=== PATIENT | male | born 1965 | race American Indian/Alaskan Native ===

== ENCOUNTER 2017-10-10 19:00 | Emergency (ER) | payer MEDICARE, MEDICAID ==
[2017-10-10 19:48] VITALS: BP 140/76
[2017-10-10] MEDS ORDERED: BANOPHEN PO ONE (20:40)
[2017-10-10] MEDS ORDERED: DECADRON IM ONE (20:40)
[2017-10-10] MEDS ORDERED: REGLAN PO ONE (20:40)
[2017-10-10] MEDS ORDERED: TYLENOL PO ONE (20:41)
--- NOTE | 2017-10-10 21:34 | Emergency Department Report ---
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 denies symptoms of withdrawal discussed this sharp chest with movement and noise is no visual changes no nausea vomiting pain is temporarily relieved by rest and NSAIDs pain is exacerbated by stress and movement patient is ambulatory no dizziness no lightheadedness no chest pain no back pain no neck pain this headache is similar to previous headaches the past in location and intensity Timing/Duration: other (5 days ) Quality: moderate Head Injury Location: frontal Recent Head Trauma: no recent headache/trauma, occasional headaches Modifying Factors: improves with: movement, rest Associated Symptoms: denies: confusion, fatigue, facial pain, fever/chills, flushing, loss of consciousness, nausea/vomiting, nasal congestion, nasal drainage, numbness in legs/feet, rash, sinus infection, stiff neck, vision changes, weakness Allergies/Adverse Reactions: Allergies No Known Allergies Allergy (Unverified 10/10/17 19:41) Home Medications: Ambulatory Orders Acetaminophen [Tylenol] 975 mg PO QID PRN #60 capsule 10/10/17 Metoclopramide [Reglan] 10 mg PO ACHS PRN #30 tablet 10/10/17 diphenhydrAMINE [Benadryl CAP] 25 mg PO Q6HR PRN #30 capsule 10/10/17 ED Review of Systems ROS: Stated complaint: SEVERE HEADACHE Other details as noted in HPI Constitutional: denies: chills, fever Eyes: denies: eye pain, eye discharge, vision change ENT: denies: ear pain, throat pain Respiratory: denies: cough, shortness of breath, wheezing Cardiovascular: denies: chest pain, palpitations Endocrine: no symptoms reported Gastrointestinal: denies: abdominal pain, nausea, diarrhea Genitourinary: denies: urgency, dysuria Musculoskeletal: denies: back pain, joint swelling, arthralgia Skin: denies: rash, lesions Neurological: headache. denies: weakness, numbness, paresthesias, confusion, abnormal gait, vertigo Psychiatric: denies: anxiety, depression Hematological/Lymphatic: denies: easy bleeding, easy bruising ED Past Medical Hx - Past Medical History Previous Medical History?: Yes Hx Hypertension: Yes Hx Diabetes: Yes Hx Psychiatric Treatment: Yes (Bipolar) Additional medical history: sleep apnea - Surgical History Past Surgical History?: Yes Additional Surgical History: gastric sleeve - Social History Smoking Status: Never Smoker Substance Use Type: None - Medications Home Medications: Home Medications Medication Instructions Recorded Confirmed Last Taken Type Acetaminophen [Tylenol] 975 mg PO QID PRN #60 capsule 10/10/17 Unknown Rx Metoclopramide [Reglan] 10 mg PO ACHS PRN #30 tablet 10/10/17 Unknown Rx diphenhydrAMINE [Benadryl CAP] 25 mg PO Q6HR PRN #30 capsule 10/10/17 Unknown Rx ED Physical Exam - General Limitations: No Limitations General appearance: alert, in no apparent distress - Head Head exam: Present: atraumatic, normocephalic, normal inspection - Eye Eye exam: Present: normal appearance, PERRL, EOMI Pupils: Present: normal accommodation - ENT ENT exam: Present: normal exam, normal orophraynx, mucous membranes moist, TM's normal bilaterally - Neck Neck exam: Present: normal inspection, full ROM. Absent: tenderness, lymphadenopathy, thyromegaly - Respiratory Respiratory exam: Present: normal lung sounds bilaterally. Absent: respiratory distress, wheezes, stridor, chest wall tenderness - Cardiovascular Cardiovascular Exam: Present: regular rate, normal rhythm. Absent: systolic murmur, diastolic murmur, rubs, gallop - GI/Abdominal GI/Abdominal exam: Present: soft, normal bowel sounds. Absent: distended, tenderness, bruit, hernia - Rectal Rectal exam: Present: deferred - Extremities Exam Extremities exam: Present: normal inspection, full ROM, normal capillary refill. Absent: tenderness - Back Exam Back exam: Present: normal inspection, full ROM. Absent: tenderness - Neurological Exam Neurological exam: Present: alert, oriented X3, CN II-XII intact, normal gait, reflexes normal. Absent: motor sensory deficit - Expanded Neurological Exam Expanded Patient oriented to: Present: person, place, time Speech: Present: fluid speech Cranial nerves: EOM's Intact: Normal, Gag Reflex: Normal, Tongue Deviation: Normal, Nystagmus: Normal, Facial Sensation: Normal Cerebellar function: Finger to Nose: Normal, Heel to Rivas: Normal, Romberg: Normal Upper motor neuron: Chris Neglect: Normal, Pronator Drift: Normal, Babinski Sign : Normal, Sensory Extinction: Normal Sensory exam: Upper Extremity Light Touch: Normal, Upper Extremity Pin Prick: Normal, Upper Extremity Temperature: Normal, UE 2 Point Discrimination: Normal, Lower Extremity Light Touch: Normal, Lower Extremity Pin Prick: Normal, Lower Extremity Temperature: Normal, LE 2 Point Discrimination: Normal Motor strength exam: RUE: 5, LUE: 5, RLE: 5, LLE: 5 DTR: bicep (R): 2+, bicep (L): 2+, tricep (R): 2+, tricep (L): 2+, knee (R): 2+ , knee (L): 2+, ankle (R): 2+, ankle (L): 2+ Best Eye Response (Elizabeth): (4) open spontaneously Best Motor Response ([place]reston): (6) obeys commands Best Verbal Response ([place]): (5) oriented [place] Total: 15 - Psychiatric Psychiatric exam: Present: normal affect, normal mood. Absent: homicidal ideation, suicidal ideation, other (no tremor no memory loss on symptoms of withdrawal ) - Skin Skin exam: Present: warm, dry, intact, normal color. Absent: rash ED Course Vital Signs 10/10/17 19:41 Temperature 99.6 F Pulse Rate 92 H Respiratory 20 Rate Blood Pressure 140/76 O2 Sat by Pulse 98 Oximetry ED Medical Decision Making - Medical Decision Making Postop from [place] about this is an acute headache headache improving as given in ED visual changes no nausea vomiting has no symptoms of withdrawal no tremor is a and O 3 to a steady gait no symptoms of sinus or ear infection plan DC to home follow with PCP. Prescribed Reglan and Benadryl Tylenol products or headache patient verbalizes agreement and understand the discharge plan will be DC'd home stable condition at this time. pain level now 2/10 Critical care attestation.: If time is entered above; I have spent that time in minutes in the direct care of this critically ill patient, excluding procedure time. ED Disposition Clinical Impression: Headache Qualifiers: Headache type: unspecified Headache chronicity pattern: acute headache Intractability: not intractable Qualified Code(s): R51 - Headache Disposition: DC-01 TO HOME OR SELFCARE Is pt being admited?: No Does the pt Need Aspirin: No Condition: Good Instructions: Cluster Headache (ED), Acute Headache (ED) Prescriptions: Acetaminophen [Tylenol] 975 mg PO QID PRN #60 capsule PRN Reason: pain diphenhydrAMINE [Benadryl CAP] 25 mg PO Q6HR PRN #30 capsule PRN Reason: Headache Metoclopramide [Reglan] 10 mg PO ACHS PRN #30 tablet PRN Reason: headache Referrals: DARIAN STREET MD [Primary Care Provider] - 3-5 Days Forms: Work/School Release Form(ED) Time of Disposition: 21:45
== END 2017-10-10 21:52 | disposition home or self-care (01) ==
LOC: ED 19:00
DX: R51 Headache (principal); I10 Essential (primary) hypertension; E11.9 Type 2 diabetes mellitus without complications; F31.9 Bipolar disorder, unspecified
CPT/HCPCS: 96372; 99282; J1100; Q0163